=== PATIENT | male | born 1945 | race Caucasian/White ===

== ENCOUNTER 2016-11-15 12:27 | Observation (INO) ==
[2016-11-15] MEDS ORDERED: Ipratropium/Albuterol Neb 3 ML IH ONE (12:46)
[2016-11-15] MEDS ORDERED: methylPREDNISolone 125 MG/2 ML VIAL IVP ONE (12:46)
[2016-11-15] MEDS ORDERED: *HR* LORazepam 2 MG/ML VIAL IVP ONE (12:52)
[2016-11-15 13:05] LABS: Basophils % 0.7 %; Eosinophils # 0.1 K/mcL (0.0-0.6); Eosinophils % 2.2 %; Hematocrit 40.5 % (37.5-50.1); Hemoglobin 13.5 g/dL (12.9-16.9); Immature Granulocytes % 0.2 % (0-4); Lymphocytes # 0.5 K/mcL (0.6-4.6); Lymphocytes % 8.4 %; Mean Corpuscular HGB Conc 33.3 g/dL (31.6-35.5); Mean Corpuscular Hemoglobin 26.7 pg (28.0-33.3); Mean Corpuscular Volume 80.2 fL (83.0-100.0); Mean Platelet Volume 9.1 fL (9.4-12.4); Monocytes # 0.7 K/mcL (0.0-1.3); Monocytes % 11.6 %; Neutrophils # 4.5 K/mcL (1.6-8.9); Platelet Count 251 K/mcL (140-400); Red Blood Count 5.05 M/mcL (4.19-5.50); Segmented Neutrophils % 76.9 %
[2016-11-15 13:17] LABS: BUN/Creatinine Ratio 9 (6-26); Blood Urea Nitrogen 9 mg/dL (8-26); Calcium 10.3 mg/dL (8.6-10.8); Carbon Dioxide 23 mEq/L (19-29); Chloride 100 mEq/L (98-109); Glucose 121 mg/dL (70-99); Osmolality,Calculated 278 (280-300); Potassium 4.2 mEq/L (3.5-4.5); Sodium 134 mEq/L (136-145); eGFR For African Americans > 60 (> 60); eGFR For Non-African Americans > 60 (> 60)
--- NOTE | 2016-11-15 13:20 | Emergency Department Note ---
Disposition Clinical Impression: Pericardial effusion, Acute exacerbation of chronic obstructive airways disease , Prostate cancer Disposition: Admitted As Inpatient Condition: Fair Time of Disposition: 16:51 SOB HPI - General Chief Complaint: ED Shortness of Breath/Dyspnea Stated Complaint: SOB Time Seen by Provider: 11/15/16 12:45 Source: patient Limitations: no limitations Nursing Notes Reviewed: Yes Vital Signs Reviewed: Yes - History of Present Illness 71-year-old male with shortness of breath and shakiness for the last few days. She thought this was due to starting on hydroxyzine so he discontinued this yesterday. Patient has a history of COPD, has oxygen as needed at baseline. Patient states that he is feeling more short of breath, he also has not new history of prostate cancer and gets radiation treatments daily for the last [address] Garrido at [facility]. Patient denies chest pain or pressure , denies abdominal pain. Denies fever chills or productive cough, nausea, vomiting, diarrhea, constipation, dysuria, hematuria, or wt loss. Shakiness he is not sure of but he states that his having generalized full body shaking, does not lose consciousness, attributes this to anxiety. Pt Subjective Complaint: shortness of breath Onset (ago): day(s) Context: recent illness Severity: mild Known history of: COPD Associated symptoms: Reports: cough. Denies: chest pain, pain with inspiration , nausea/vomiting, abdominal pain Cough present: Yes Cough Description: Voluntary Cough Frequency: Continuous Sputum production: No Sputum Amount: None - Related Data Home oxygen amount: other (PRN) Home Medications Medication Instructions Recorded Confirmed Albuterol Sulfate 2.5 mg IH TID PRN 08/17/15 11/15/16 Albuterol Sulfate [Ventolin Hfa] 2 puff IH Q4H PRN 08/17/15 11/15/16 Fluticasone/Salmeterol [Advair 1 puff IH BID 08/17/15 11/15/16 500-50 Diskus] Losartan Potassium [Cozaar] 50 mg PO DAILY 08/17/15 11/15/16 Roflumilast [Daliresp] 500 mcg PO DAILY 08/17/15 11/15/16 Amlodipine Besylate 10 mg PO DAILY 01/31/16 11/15/16 Oxygen 2 l NS HS 09/04/16 11/15/16 Ipratropium/Albuterol Sulfate 1 puff IH BID 11/15/16 11/15/16 [Combivent Respimat Inhal [place]] Melatonin 10 mg PO HS 11/15/16 11/15/16 Previous Rx's Medication Instructions Recorded Sulfamethoxazole/Trimeth DS 1 each PO BID #10 tablet 11/12/16 [Bactrim DS] Allergies Allergy/AdvReac Type Severity Reaction Status Date / Time ciprofloxacin [From Cipro] Allergy Swelling Verified 09/04/16 10:52 of Lip/Tongue/Throat All systems ED: reviewed and negative except as stated. Constitutional: Denies: fever, chills Cardiovascular: Denies: chest pain, palpitations Respiratory: Reports: as per HPI, dyspnea, wheezes. Denies: cough, sputum production Gastrointestinal: Denies: abdominal pain, nausea Musculoskeletal: Denies: back pain, neck pain Integumentary: Denies: rash Neurological: Reports: other (Shakiness). Denies: headache, weakness Psychiatric: Denies: anxiety, depression Endocrine: Denies: fatigue Past Medical History - Past Medical History Attestation: Yes The following information was validated with the patient. Source: patient Medical history: Reports: cancer, COPD, hypertension, other Surgical history: Reports: other Psychiatric history: Reports: no psych history - Social History Smoking Status: Former smoker Smokeless Tobacco Status: No Alcohol use: Reports: none Drug use: Reports: none Physical Exam Constitutional: Elderly male somewhat shaky no acute distress satting 95% on room air HEENT: NCAT, sclera anicteric Neck: normal inspection, neck is supple, trachea midline, NO JVD Resp: Bilateral expiratory wheezes and prolonged expiratory phase with pursed lip breathing CV: RRR, diminished heart sounds GI: normal inspection, Soft, NTND, BS present Back: normal inspection, no tenderness to palpation Neuro: A&O3, no gross motor or sensory deficits bilaterally, generalized tremors MSK: normal inspection, bilateral UE and LE with normal ROM Skin: No rashes, skin warm, dry, intact - General Limitations: no limitations General appearance: alert, in no apparent distress Course Course Narrative: 71-year-old male with shortness of breath history of COPD, given recent prostate cancer with a chest pain workup including chest x-ray tried DuoNeb treatments given that he does sound somewhat wheezy, and reassess this lab work CBC BMP troponin duoneb, soluMedrol 125 - Reevaluation(s) Reevaluation #1: A CTA of his chest was obtained to evaluate for pulmonary embolism, recently found a trace pericardial effusion, I sent a bedside ultrasound on and there does appear to be good cardiac activity, with no evidence of Not physiology, patient is no evidence of JVD on exam, or hypotension during his course in the emergency department, at this time no intervention is necessary however I did consult the on-call recycler Dr. Clark and made her aware that there will be a cardiology consult for pericardial effusion admitted the patient to Dr. Bowen in stable condition Time: 16:50 Vital Signs Temperature 97.8 F 11/15/16 12:29 Pulse Rate 92 11/15/16 12:29 Respiratory Rate 25 11/15/16 12:29 Blood Pressure 157/97 11/15/16 12:29 O2 Sat by Pulse Oximetry 95 11/15/16 12:29 Temperature 97.8 F 11/15/16 12:29 Pulse Rate 93 11/15/16 15:52 Respiratory Rate 20 11/15/16 16:31 Blood Pressure 128/70 11/15/16 16:31 O2 Sat by Pulse Oximetry 95 11/15/16 15:52 Oxygen Delivery Oxygen Delivery Nasal Cannula Shortness of Breath/Dyspnea - [facility] [place] Narrative Medical decision making narrative: 71-year-old male with shortness of breath admitted for pericardial effusion, possible radiation pneumonitis, COPD exacerbation. - Differential Diagnosis Likely: congestive heart failure, pneumonia, asthma with exacerbation, pulmonary embolism - Medical Records Medical records reviewed: Yes I reviewed the patient's medical records. - Lab Data Lab results reviewed: Yes I reviewed the patient's lab results. Result diagrams: 11/15/16 12:57 11/15/16 12:57 Lab Results 11/15/16 11/15/16 11/15/16 Range/Units 12:57 12:57 12:57 WBC 5.8 (4.3-11.1) K/mcL RBC 5.05 (4.19-5.50) M/mcL Hgb 13.5 (12.9-16.9) g/dL Hct 40.5 (37.5-50.1) % MCV 80.2 L (83.0-100.0) fL MCH 26.7 L (28.0-33.3) pg MCHC 33.3 (31.6-35.5) g/dL RDW 13.0 (11.5-14.5) % Plt Count 251 (140-400) K/mcL MPV 9.1 L (9.4-12.4) fL Immature Gran % 0.2 (0-4) % Seg Neutrophils % 76.9 % Lymphocytes % 8.4 % Monocytes % 11.6 % Eosinophils % 2.2 % Basophils % 0.7 % Neutrophils # 4.5 (1.6-8.9) K/mcL Lymphocytes # 0.5 L (0.6-4.6) K/mcL Monocytes # 0.7 (0.0-1.3) K/mcL Eosinophils # 0.1 (0.0-0.6) K/mcL Basophils # 0.0 (0.0-0.2) K/mcL Immature Plt Fraction 3.0 (1.1-6.1) % Sodium 134 L (136-145) mEq/L Potassium 4.2 (3.5-4.5) mEq/L Chloride 100 (98-109) mEq/L Carbon Dioxide 23 (19-29) mEq/L BUN 9 (8-26) mg/dL Creatinine 1.02 (0.72-1.25) mg/dL Est GFR ( Amer) > 60 (> 60) Est GFR (Non-Af Amer) > 60 (> 60) BUN/Creatinine Ratio 9 (6-26) Glucose 121 H (70-99) mg/dL Calculated Osmolality 278 L (280-300) Lactic Acid 1.4 (0.5-2.2) mmol/L Calcium 10.3 (8.6-10.8) mg/dL Troponin I (0-0.03) ng/mL B-Natriuretic Peptide (0-100) pg/mL 11/15/16 11/15/16 Range/Units 12:57 12:57 WBC (4.3-11.1) K/mcL RBC (4.19-5.50) M/mcL Hgb (12.9-16.9) g/dL Hct (37.5-50.1) % MCV (83.0-100.0) fL MCH (28.0-33.3) pg MCHC (31.6-35.5) g/dL RDW (11.5-14.5) % Plt Count (140-400) K/mcL MPV (9.4-12.4) fL Immature Gran % (0-4) % Seg Neutrophils % % Lymphocytes % % Monocytes % % Eosinophils % % Basophils % % Neutrophils # (1.6-8.9) K/mcL Lymphocytes # (0.6-4.6) K/mcL Monocytes # (0.0-1.3) K/mcL Eosinophils # (0.0-0.6) K/mcL Basophils # (0.0-0.2) K/mcL Immature Plt Fraction (1.1-6.1) % Sodium (136-145) mEq/L Potassium (3.5-4.5) mEq/L Chloride (98-109) mEq/L Carbon Dioxide (19-29) mEq/L BUN (8-26) mg/dL Creatinine (0.72-1.25) mg/dL Est GFR ( Amer) (> 60) Est GFR (Non-Af Amer) (> 60) BUN/Creatinine Ratio (6-26) Glucose (70-99) mg/dL Calculated Osmolality (280-300) Lactic Acid (0.5-2.2) mmol/L Calcium (8.6-10.8) mg/dL Troponin I 0.00 (0-0.03) ng/mL B-Natriuretic Peptide 12 (0-100) pg/mL - Radiology Data Radiology results reviewed: Yes I reviewed the patient's radiology results. Chest X-Ray 11/15/16 12:46 IMPRESSION: No acute cardiopulmonary process. D/ / Silas Claudio MD / Silas Claudio MD Interpreting Provider: Silas Claudio MD Chest CTA 11/15/16 13:59 IMPRESSION: 1. New trace pericardial effusion. D/ / Nestor Browning MD / Nestor Browning MD Interpreting Provider: Nestor Browning MD - EKG Data EKG attestation: Yes I reviewed and interpreted this EKG. EKG shows normal: Reports: sinus rhythm (95 bpm [place] 166 QRS [address] segment elevations or depressions.) Rate: Reports: normal Rhythm: Reports: NSR Attestation Statement - Attestation Attestation: I personally interviewed and examined this patient and my medical decision- making was reviewed with the ED Resident Physician, Dr. Kapadia I agree with the documented findings, disposition and treatment plan as described except to the extent set forth below. Patient is a 71-year-old white male with a history of prostate cancer undergoing radiation therapy every day for the last 3 weeks. Patient also has a history of COPD and presents today complaining of gradually worsening shortness of breath over the past 2 days. Patient also complaining of jitteriness and shakiness and was concerned that it could be related to his hydroxyzine that he has been taking which was prescribed for anxiety. Patient denies any fevers or chills, no production of cough or change in the character of his cough. Patient with no posttussive emesis. Patient denies any chest pain pressure or heaviness associated with this shortness of breath. Patient denies any nausea vomiting, no bowel changes, no back or flank pain. Agree with patient's physical exam findings as documented. Patient received breathing treatments on arrival to the ED and is on supplemental oxygen at this time, he uses 2 L nasal cannula at home as needed. Patient with noticeable increased work of breathing although daughter states that "this is how he always breathes". Patient states he is feeling better following aerosols. Portal chest x-ray shows no acute process, lab evaluation is unremarkable overall. At this time we are concerned in regards to his recent cancer diagnosis whether or not this could be possible PE versus radiation pneumonitis. Will continue evaluation with CT of the chest to rule out these possibilities. Patient with improved respiratory status at this time , resting comfortably at bedside with stable vital signs. Patient CT negative for PE, but does show small pericardial effusion. Discussed results with patient and will admit the patient for acute exacerbation COPD as well as pericardial effusion. Patient remains hemodynamically stable at this time with improved respiratory status.
[2016-11-15] MEDS: 0.9 % Sodium Chloride 1,000 ML IVC SCH (16:44)
[2016-11-15] MEDS ORDERED: Acetaminophen 325 MG TABLET PO PRN (17:19)
[2016-11-15] MEDS ORDERED: Ondansetron 4 MG/2 ML VIAL IVP PRN (17:19)
[2016-11-15] MEDS ORDERED: *HR* HYDROcodone/Acet 5/325 mg TABLET PO PRN (17:19)
[2016-11-15] MEDS ORDERED: *HR* Morphine 2 MG/ML SYRINGE IVP PRN (17:19)
[2016-11-15] MEDS ORDERED: Naloxone 0.4 MG/ML INJ IVP PRN (17:19)
[2016-11-15] MEDS ORDERED: Menthol 9.1 MG LOZENGE PO PRN (17:49)
--- NOTE | 2016-11-15 17:51 | Internal Med History&Physical ---
<Enoc Betancur - Last Filed: 11/15/16 18:52> Date of Encounter: 11/15/16 Time of Encounter: 17:00 Assessment and Plan (1) Pericardial effusion Current visit: Yes Status: Acute Patient presents with acute SOB over the past three weeks which has become progressively worse over the past three days. CT of the chest dated 11/15/16 shows new trace pericardial effusion with no evidence of cardiac tamponade. No pedal edema. No JVD on examination. EV echocardiogram ordered and cardiology consult placed. Continuous cardiac telemetry and supplemental O2 ordered with continuous SPO2 monitoring. CK/MB ordered. Falls precautions/[id number]/bed rest with bathroom privileges with assist. (2) Acute exacerbation of chronic obstructive airways disease Current visit: Yes Status: Acute Patient presents with acute exacerbation of chronic obstructive airways disease which he reports has taken place over the past 3 weeks and progressively got worse over the past 3 days. Supplemental O2 ordered with titration if SPO2 less than 92%. Continuous SPO2 monitoring. DuoNebs every 4 ordered. IV steroids. Continue patient's Symbicort. IV antibiotics. Falls precautions/up- with-assist/and bed rest with bathroom privileges with assist due to SOB. (3) UTI (urinary tract infection) Current visit: Yes Status: Acute Patient diagnosed with UTI [address] Garrido and placed on by mouth antibiotics. Patient has not completed full round of antibiotics. IV azithromycin 500 mg daily ordered. Urine culture ordered. Qualifiers: Urinary tract infection type: site unspecified Hematuria presence: without hematuria Qualified Code(s): N39.0 - Urinary tract infection, site not specified (4) Insomnia Current visit: Yes Status: Acute Patient presents with new onset insomnia for the past week stating he only has slept 2 hours nightly for the past 7 days. Remeron 7.5 mg at bedtime ordered. Qualifiers: Insomnia type: due to medical condition Qualified Code(s): G47.01 - Insomnia due to medical condition (5) Prostate cancer Current visit: Yes Status: Acute Patient presents with recent history of prostate cancer for which he received radiation treatments daily for the past [address] Garrido at [facility]. Patient to follow up with Dr. Garrido following discharge. (6) Hypertension Current visit: Yes Status: Chronic Patient presents with history of chronic hypertension. Will monitor patient and vital signs. Continue patient's Losartan and amlodipine. Qualifiers: Hypertension type: essential hypertension Qualified Code(s): I10 - Essential (primary) hypertension (7) DVT prophylaxis Current visit: Yes Status: Acute Patient placed on DVT prophylaxis due to admission protocol and bedrest status. Heparin 5,000 units SQ Q12 ordered. Monitor patient for unusual bleeding. Internal Medicine - H&P: HPI Chief complaint: SOB/Shakiness Admitted From: Emergency Dept Plans for Post Hospital Care: Home History of present illness: Mr. Jacques is a 71 year old male who presents from the ED with chief complaint of shortness of breath and shakiness for the past few days. Patient reports shortness of breath has been ongoing accompanied by dizziness for the past 3 weeks became progressively worse within the past 2-3 days. SOB has been accompanied by a feeling of total body shakiness. Patient felt his dizziness, shakiness, and SOB was due to new prescription of hydroxyzine 71 discontinued as of yesterday. Patient also reports a new history of prostate cancer and received radiation treatments daily for the past [address] Garrido at [facility]. Patient reports he was also diagnosed with the UTI by Dr. Garrido which ago and placed on by mouth antibiotics. Mr. Jacques also reports he has not slept more than 2 hours in the past week due to anxiety and SOB. Patient denies chest pain or pressure, abdominal pain, recent illness, syncope, presyncope, fever, chills, productive cough, nausea, vomiting, diarrhea, constipation, unusual bleeding or weight loss, or generalized weakness. Patient has a history of prostate cancer, COPD, hypertension but denies any cardiac history or issues. CT of the chest dated 11/15/16 shows new trace pericardial effusion with no evidence of cardiac tamponade. Patient is at moderate risk due to shortness of breath, COPD, and pericardial effusion and will be placed as observation status. Mr. Jacques has orders for echocardiogram, CK/MB, iron panel due to microcytic/hypochromic anemia, continuous cardiac telemetry, supplemental O2 with saturation of SPO2 less than 92%, continuous SPO2 monitoring, and IV azithromycin 500 mg daily. Urine cultures ordered. Patient to be monitored closely. Time spent with patient greater than 40 minutes. Past Med Surg Social Fam HX - Past Medical History Source: patient Medical history: cancer (Prostate), COPD, hypertension, other Psychiatric history: no psych history - Past Surgical History Surgical History: orthopedic, other (Back & neck surgery), other (Removal of skin cancer on left chest) - Social History Smoking Status: Former smoker Smokeless Tobacco Status: No Alcohol use: none Drug use: none Current living situation: Home, With Family Activity Level: Independent ambulation Recent Out of Country Travel Within the Last 8 Weeks: No Exposure or Possible Exposure to Illness During Travel: No - Family History Mother Race: Family Member Ethnicity: Non- Living Status: Age at : 78 Cause of : COPD complications Hx Family Respiratory Disorders: Yes (COPD) Father Adopted: No Race: Family Member Ethnicity: Non- Living Status: Age at : 72 Cause of : Brain cancer Hx Family Cardiac Disorders: Yes (CAD) Hx Family Cancer: Yes (Leukemia, Brain) Brother Race: Family Member Ethnicity: Non- Living Status: Age at : 59 Cause of : COPD complications Hx Family Respiratory Disorders: Yes (COPD) Sister Race: Family Member Ethnicity: Non- Living Status: Age at : 74 Cause of : Stroke Hx Family Cardiac Disorders: Yes (Stroke) Internal Medicine - H&P: Meds RX: Albuterol Sulfate 2.5 mg IH TID PRN 08/17/15 [History] RX: Albuterol Sulfate [Ventolin Hfa] 2 puff IH Q4H PRN 08/17/15 [History] RX: Fluticasone/Salmeterol [Advair 500-50 Diskus] 1 puff IH BID 08/17/15 [ History] RX: Losartan Potassium [Cozaar] 50 mg PO DAILY 08/17/15 [History] RX: Roflumilast [Daliresp] 500 mcg PO DAILY 08/17/15 [History] RX: Amlodipine Besylate 10 mg PO DAILY 01/31/16 [History] RX: Oxygen 2 l NS HS 09/04/16 [History] Sulfamethoxazole/Trimeth DS [Bactrim DS] 1 each PO BID #10 tablet 11/12/16 [Rx] Ipratropium/Albuterol Sulfate [Combivent Respimat Inhal [place]] 1 puff IH BID [History] RX: Melatonin 10 mg PO HS 11/15/16 [History] Allergies ciprofloxacin [From Cipro] Allergy (Verified 09/04/16 10:52) Swelling of Lip/Tongue/Throat All Systems PM: A 10-system review of systems was performed and is negative for pertinent findings except as documented above in the HPI. - Constitutional Constitutional: no chills, no fever(s), no night sweats - EENT Eyes: no change in vision, no discharge, no pain, no photophobia Ears: no ear discharge, no ear pain, no tinnitus Nose, mouth and throat: no dysphagia, no nasal discharge, no neck pain, no sore throat - Breasts Breasts: as per HPI - Cardiovascular Cardiovascular ROS IM: as per HPI, dyspnea, lightheadedness, no chest pain, no diaphoresis, no palpitations, no syncope - Respiratory Respiratory: as per HPI, cough, dyspnea, dyspnea on exertion, wheezing - Gastrointestinal Gastrointestinal: no abdominal pain, no diarrhea, no hematemesis, no hematochezia, no melena, no nausea, no vomiting - Genitourinary Genitourinary ROS male: as per HPI, difficulty urinating - Musculoskeletal Musculoskeletal ROS IM: as per HPI, other (Shakiness) - Neurological Neurological ROS: no confusion, no convulsions, no focal weakness, no numbness, no tingling, no tremor(s) - Psychiatric Psychiatric: as per HPI - Endocrine Endocrine IM: as per HPI - Hematologic/Lymphatic Hematologic/Lymphatic: no easy bruising - Allergic/Immunologic Allergic/Immunologic: as per HPI - Constitutional Vitals: Temp Pulse Resp BP Pulse Ox 97.8 F 93 20 128/70 95 11/15/16 12:29 11/15/16 15:52 11/15/16 16:31 11/15/16 16:31 11/15/16 15:52 General appearance: Present: cooperative, mild distress (Respiratory with accessory muscle use), A&O X 3, pleasant, answers questions appropriately - Head Head exam: Present: atraumatic, normocephalic - Eye Eye exam: Present: PERRL, conjuntiva pink, sclera anicteric Pupils: Present: PERRL - ENT ENT exam: Present: normal exam, normal external ear exam - Neck Neck exam general surgery: Present: supple, trachea midline. Absent: lymphadenopathy - Respiratory Respiratory exam: Present: accessory muscle use, respiratory distress, wheezes. Absent: rales, rhonchi - Cardiovascular Cardiovascular exam: Present: RRR, +S1, +S2. Absent: diastolic murmur, gallop, rubs, systolic murmur - GI/Abdominal GI/Abdominal exam: Present: normal bowel sounds, soft, no peritoneal signs. Absent: distended, tenderness - Rectal Rectal exam: Present: deferred - Additional comments: exam deferred. - Extremities Exam Extremities exam: Present: warm, radial pulses palpable and symetrical. Absent : calf tenderness, cyanotic, pedal edema - Back Exam Back exam: Present: normal inspection - Neurological Exam Neurological exam: Present: CN II-XII intact, oriented X3, no focal deficits. Absent: pronater drift, facial droop, speech deficit - Psychiatric Psychiatric exam: Present: normal affect, normal mood - Skin Skin exam: Present: dry, intact Internal Med - H&P Results - Labs CBC & Chem 7: 11/15/16 12:57 11/15/16 12:57 - EKG Data EKG shows normal: sinus rhythm - EKG Data Prior EKG available for review: yes When compared to previous EKG: there is no significant change EKG comments: 11/15/16 18:08 EKG dated 12/26/05 shows sinus rhythm with poor R-wave progression (probable normal variant), nonspecific ST-T wave changes. EKG dated 11/15/16 shows sinus rhythm with indeterminate axis, atypical ECG. - Diagnostic Studies Chest x-ray Additional comments: Impressions Chest X-Ray 11/15/16 12:46 IMPRESSION: No acute cardiopulmonary process. D/ / Silas Claudio MD / Silas Claudio MD Interpreting Provider: Silas Claudio MD CT scan - chest Additional comments: Impressions Chest CTA 11/15/16 13:59 IMPRESSION: 1. New trace pericardial effusion. D/ / Nestor Browning MD / Nestor Browning MD Interpreting Provider: Nestor Browning MD <Jesenia Mary - Last Filed: 11/15/16 18:53> Date of Encounter: 11/15/16 Time of Encounter: 17:30 Internal Medicine - H&P: HPI History of present illness: Mr. Jacques is a 71 year old male All Systems PM: A 10-system review of systems was performed and is negative for pertinent findings except as documented above in the HPI. - Constitutional Vitals: Temp Pulse Resp BP Pulse Ox 97.8 F 76 16 120/73 94 11/15/16 17:51 11/15/16 17:51 11/15/16 17:51 11/15/16 17:51 11/15/16 17:51 Internal Med - H&P Results - Labs CBC & Chem 7: 11/15/16 12:57 11/15/16 12:57 - Attending Attestation I examined this patient and my medical decision-making was reviewed with the nurse practitioner. I agree with the documented history of present illness, review of systems, past medical, surgical social and family histories and examination findings, disposition and treatment plan as described above except to any changes set forth below. 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 Patient also has been Having cough with productive sputum. He denies any chest pain, palpitations. Denies any pedal edema. He has been receiving radiation to his prostate daily. No prior cardiac issues. On examination, patient has normal S1 and S2. Has decreased breath sounds bilaterally with expiratory wheezing. No pedal edema. No jugular venous distention. CT angiogram of the chest shows no PE but there is trace pericardial effusion. Acute exacerbation of COPD: Patient has expiratory wheezing and cough with sputum production. We will treat with IV steroids, bronchodilators and azithromycin. Pericardial effusion: Trace pericardial effusion per CTA. Bedside US in ED did not show any evidence of tamponade. We will get 2-D echocardiogram. Cardiology consult. Essential hypertension: Monitor blood pressure. Resume home medications. Prostate cancer: He should not we will continue with radiation therapy after discharge.
[2016-11-15] MEDS ORDERED: Levofloxacin 500 MG/100 ML 500 MG/100 ML BAG IVPB SCH (18:00)
[2016-11-15] MEDS: Azithromycin 500 MG in D5% in Water 250 ML IVPB SCH (18:16)
[2016-11-15] MEDS: *HR* Heparin 5,000 UNIT/ML VIAL SQ SCH (18:16)
[2016-11-15 18:31] LABS: % Iron Saturation 17 % (20-55); Iron 57 mcg/dL (65-175); Transferrin 235 mg/dL (174-364)
--- NOTE | 2016-11-15 18:31 | Event Note ---
Date of Encounter: 11/15/16 Time of Encounter: 17:30 I examined this patient and my medical decision-making was reviewed with the nurse practitioner. I agree with the documented history of present illness, review of systems, past medical, surgical social and family histories and examination findings, disposition and treatment plan as described above except to any changes set forth below. 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 Patient also has been Having cough with productive sputum. He denies any chest pain, palpitations. Denies any pedal edema. He has been receiving radiation to his prostate daily. No prior cardiac issues. On examination, patient has normal S1 and S2. Has decreased breath sounds bilaterally with expiratory wheezing. No pedal edema. No jugular venous distention. CT angiogram of the chest shows no PE but there is trace pericardial effusion. Acute exacerbation of COPD: Patient has expiratory wheezing and cough with sputum production. We will treat with IV steroids, bronchodilators and azithromycin. Pericardial effusion: Trace pericardial effusion per CTA. We will get 2-D echocardiogram. Cardiology consult. Essential hypertension: Monitor blood pressure. Resume home medications. Prostate cancer: He should not we will continue with radiation therapy after discharge.
[2016-11-15] MEDS: Ipratropium/Albuterol Neb 3 ML IH SCH ×2 (19:54→23:43)
[2016-11-15] MEDS: Mirtazapine 15 MG TABLET PO SCH (20:48)
[2016-11-15] MEDS ORDERED: Budesonide/Formoterol 160/4.5 MDI IH SCH (21:00)
[2016-11-15 21:28] LABS: Bilirubin,Urine Negative (Negative); Blood,Urine Negative (Negative); Clarity,Urine Clear (Clear); Color,Urine Yellow (Yellow); Glucose,Urine (UA) 250 mg/dL (Normal); Ketones,Urine Negative (Negative); Leukocyte Esterase,Urine Negative (Negative); Nitrite,Urine Negative (Negative); Protein,Urine Negative (Neg-Trace); Specific Gravity,Urine > 1.030 (1.010-1.025); Urobilinogen,Urine Normal (Normal)
[2016-11-16] MEDS: methylPREDNISolone 125 MG/2 ML VIAL IVP SCH ×4 (00:49→20:08)
[2016-11-16] MEDS: 0.9 % Sodium Chloride 1,000 ML IVC SCH ×2 (02:29→14:47)
[2016-11-16 03:43] LABS: Hematocrit 36.8 % (37.5-50.1); Hemoglobin 12.1 g/dL (12.9-16.9); Mean Corpuscular HGB Conc 32.9 g/dL (31.6-35.5); Mean Corpuscular Hemoglobin 26.4 pg (28.0-33.3); Mean Corpuscular Volume 80.2 fL (83.0-100.0); Mean Platelet Volume 9.3 fL (9.4-12.4); Platelet Count 225 K/mcL (140-400); Red Blood Count 4.59 M/mcL (4.19-5.50); Red Cell Distribution Width 12.9 % (11.5-14.5)
[2016-11-16 03:57] LABS: BUN/Creatinine Ratio 11 (6-26); Blood Urea Nitrogen 11 mg/dL (8-26); Calcium 9.5 mg/dL (8.6-10.8); Carbon Dioxide 23 mEq/L (19-29); Chloride 104 mEq/L (98-109); Chol/HDL Ratio 2.6 (0-4.9); Cholesterol 116 mg/dL (< 200); Glucose 157 mg/dL (70-99); HDL Cholesterol 45 mg/dL (40-59); LDL Cholesterol,Calculated 65 mg/dL (0-99); Osmolality,Calculated 279 (280-300); Potassium 4.5 mEq/L (3.5-4.5); Sodium 133 mEq/L (136-145); Triglycerides 31 mg/dL (< 150); eGFR For African Americans > 60 (> 60); eGFR For Non-African Americans > 60 (> 60)
[2016-11-16] MEDS: Ipratropium/Albuterol Neb 3 ML IH SCH ×6 (03:57→23:53)
[2016-11-16 04:10] LABS: Large Platelets Present (Not Present); Lymphocytes # 0.4 K/mcL (0.6-4.6); Neutrophils # 3.4 K/mcL (1.6-8.9); Platelet Estimate Normal (Normal); Reactive Lymphocytes Present (Not Present)
[2016-11-16] MEDS: *HR* Heparin 5,000 UNIT/ML VIAL SQ SCH ×2 (05:56→17:20)
[2016-11-16] MEDS: Budesonide/Formoterol 160/4.5 MDI IH SCH ×2 (07:29→20:29)
[2016-11-16] MEDS: amLODIPine 5 MG TABLET PO SCH (08:13)
[2016-11-16] MEDS: (Roflumilast [Daliresp] 500 MCG) PO SCH (09:40)
--- NOTE | 2016-11-16 09:45 | Internal Med Progress Note ---
Date of Encounter: 11/16/16 Time of Encounter: 09:00 - Assessment and plan (1) Acute exacerbation of chronic obstructive airways disease Current Visit: Yes Status: Acute Assessment and plan: Pt has increased wheezing with SOB. Hx of COPD. Respond to treatment. - Cont abx, steroid and bronchodilator - Cont O2 supportive treatment, pt has home O2 already and use only during night. (2) Prostate cancer Current Visit: Yes Status: Acute Assessment and plan: Patient is following radiation oncologist as outpatient (3) Hypertension Current Visit: Yes Status: Chronic Assessment and plan: BP is stable continue home medications Qualifiers: Hypertension type: essential hypertension Qualified Code(s): I10 - Essential (primary) hypertension (4) Pericardial effusion Current Visit: Yes Status: Acute Assessment and plan: CTA shows small amount new pericardial effusion. Pt denies chest pain. EKG reviewed no signs of pericarditis but shows some QRS variation along breath. - Need closely monitor vitals for possible tamponade - Echo placed. - Cardio consult to guide treatment. (5) DVT prophylaxis Current Visit: Yes Status: Acute Assessment and plan: Heparin subcutaneously - Time Spent With Patient 25 - 35 minutes - Subjective Interval history: Patient is a 71-year-old male admitted for shortness of breath. His past medical history is significant for COPD, hypertension, prostate cancer. Patient was seen and examined. His shortness of breath has significantly improved after treatment. Still mild wheezing. Denies chest pain. No fever. Vital signs generally stable except for mild tachycardia. Will continue antibiotic, steroid, and bronchodilator. Cardio consult for pericardial effusion. - Constitutional Vitals: Temp Pulse Resp BP Pulse Ox 97.7 F 104 20 124/64 96 11/16/16 07:44 11/16/16 07:44 11/16/16 07:44 11/16/16 04:42 11/16/16 07:44 General appearance: Present: cooperative, mild distress (Respiratory with accessory muscle use), A&O X 3, pleasant, answers questions appropriately - Head Head exam: Present: atraumatic, normocephalic - Eye Eye exam: Present: PERRL, conjuntiva pink, sclera anicteric Pupils: Present: PERRL - Neck Neck exam general surgery: Present: supple, trachea midline. Absent: lymphadenopathy - Respiratory Respiratory exam: Present: CTAB, wheezes (Diffused bilateral expiratory wheezes) . Absent: accessory muscle use, rales, rhonchi - Cardiovascular Cardiovascular exam: Present: RRR, +S1, +S2. Absent: diastolic murmur, gallop, rubs, systolic murmur - GI/Abdominal GI/Abdominal exam: Present: normal bowel sounds, soft, no peritoneal signs. Absent: distended, tenderness - Extremities Exam Extremities exam: Present: warm, radial pulses palpable and symetrical. Absent : calf tenderness, cyanotic, pedal edema - Neurological Exam Neurological exam: Present: CN II-XII intact, oriented X3, no focal deficits. Absent: pronater drift, facial droop, speech deficit - Skin Skin exam: Present: dry, intact Internal Medicine: Result - Labs CBC & Chem 7: 11/16/16 03:27 11/16/16 03:27 Labs: Short CBC 11/16/16 Range/Units 03:27 WBC 3.8 L (4.3-11.1) K/mcL Hgb 12.1 L (12.9-16.9) g/dL Hct 36.8 L (37.5-50.1) % Plt Count 225 (140-400) K/mcL Neutrophils # 3.4 (1.6-8.9) K/mcL BMP 11/16/16 03:27 Sodium 133 L Potassium 4.5 Chloride 104 Carbon Dioxide 23 BUN 11 Creatinine 0.97 Glucose 157 H Calcium 9.5 Cardiac Enzymes 11/16/16 Range/Units 03:27 Troponin I 0.01 (0-0.03) ng/mL Urine 11/15/16 Range/Units 21:23 Urine Color Yellow (Yellow) Urine Clarity Clear (Clear) Urine pH 6.0 (5.0-8.0) pH Units Ur Specific [place] > 1.030 H (1.010-1.025) Urine Protein Negative (Neg-Trace) mg/dL Urine Glucose (UA) 250 H (Normal) mg/dL Consult Discharge Plan - Plan Referrals: Marla Kellogg CNP [Primary Care Provider] - 11/26/16 1:15 pm (Please follow up as scheduled )
--- NOTE | 2016-11-16 11:14 | Cardiology Consult Note ---
Date of Encounter: 11/16/16 Time of Encounter: 10:45 Assessment and Plan (1) Pericardial effusion Current Visit: Yes Status: Acute Incidental finding of new trace pericardial effusion noted on CTA chest in the setting of COPD exacerbation. Troponin negative, no ischemic ECG changes noted. Denies recent viral symptoms. Recently started radiation therapy for prostate CA 3 weeks ago. States symptoms (dyspnea/tremors) have nearly resolved. Recommend echocardiogram to evaluate size of effusion. Discussion w patient/family: The assessment and plan as outlined above was discussed with the patient and/or family members who expressed understanding and agreement. All questions were answered. Thank you for involving us in the care of your patient. Please call with any questions. The patient will be discussed and reviewed with Dr. Au; changes to be made accordingly. History of Present Illness Consult date: 11/16/16 Requesting physician: Jesenia Mary Consult reason: Trace pericardial effusion Chief complaint: Dyspnea, "shakiness" History of present illness: Mr. Jacques is a 71 year old male with PMH significant for COPD on home oxygen therapy, HTN, former tobacco use, and prostate cancer who presented to the ED with 2-3 day history of worsening difficulty breathing and "shakiness." Associated symptoms include insomnia for the past 2 weeks; of note, started radiation therapy for prostate CA 3 weeks ago. He notes he was recently started on Hydroxyzine several days ago which seemed to have worsened tremors and dyspnea. Bedside TTE completed in ED felt to show trace pericardial effusion, CTA demonstrated trace pericardial effusion--Cardiology consulted. Prior CV testing : TTE 01/31/16: LVEF 55% (limited study) Non-exercise nuclear stress 02/01/16: perfusion imaging was negative for ischemia/infarct, gated EF=67% Past Med Surg Social Fam HX - Past Medical History Attestation: Yes The following information was validated with the patient. Source: patient Medical history: cancer (Prostate), COPD, hypertension Psychiatric history: no psych history - Past Surgical History Surgical History: orthopedic, other (Back & neck surgery), other (Removal of skin cancer on left chest) - Social History Smoking Status: Former smoker Smokeless Tobacco Status: No Alcohol use: none Drug use: none - Family History Brother Race: Family Member Ethnicity: Non- Living Status: Age at : 59 Cause of : COPD complications Hx Family Respiratory Disorders: Yes (COPD) Sister Race: Family Member Ethnicity: Non- Living Status: Age at : 74 Cause of : Stroke Hx Family Cardiac Disorders: Yes (Stroke) Mother Race: Family Member Ethnicity: Non- Living Status: Age at : 78 Cause of : COPD complications Hx Family Respiratory Disorders: Yes (COPD) Father Adopted: No Race: Family Member Ethnicity: Non- Living Status: Age at : 72 Cause of : Brain cancer Hx Family Cardiac Disorders: Yes (CAD) Hx Family Respiratory Disorders: No Hx Family Cancer: Yes (Leukemia, Brain) Hx Family GI Disorders: No Hx Family Genitourinary Disorders: No Hx Family Endocrine Disorder: No Hx Family Musculoskeletal Disorders: No Hx Family Neuromuscular Disorders: No Hx Family Neurologic Disorders: No Hx Family HEENT Disorders: No Hx Family Autoimmune Disorders: No Hx Family Reproductive Disorders: No Hx Family Psychosocial Disorders: No Hx Family Medical Disorders: No Medications and Allergies Albuterol Sulfate 2.5 mg IH TID PRN 08/17/15 [History] Albuterol Sulfate [Ventolin Hfa] 2 puff IH Q4H PRN 08/17/15 [History] Fluticasone/Salmeterol [Advair 500-50 Diskus] 1 puff IH BID 08/17/15 [History] Losartan Potassium [Cozaar] 50 mg PO DAILY 08/17/15 [History] Roflumilast [Daliresp] 500 mcg PO DAILY 08/17/15 [History] Amlodipine Besylate 10 mg PO DAILY 01/31/16 [History] Oxygen 2 l NS HS 09/04/16 [History] Sulfamethoxazole/Trimeth DS [Bactrim DS] 1 each PO BID #10 tablet 11/12/16 [Rx] Ipratropium/Albuterol Sulfate [Combivent Respimat Inhal [place]] 1 puff IH BID [History] Melatonin 10 mg PO HS 11/15/16 [History] Allergies ciprofloxacin [From Cipro] Allergy (Verified 09/04/16 10:52) Swelling of Lip/Tongue/Throat All Systems Review: A 10-system review of systems was performed and is negative for pertinent findings except as documented above in the HPI. - Cardiovascular Cardiovascular: as per HPI Physical Examination Vital Signs, Last 4 Hours Temp Pulse Resp Pulse Ox 11/16/16 07:44 97.7 F 104 20 96 11/16/16 07:31 16 96 General: Conversant, No Apparent Distress HEENT: Atraumatic, Normocephaly Cardiac: Reg Rate and Rhythm, Normal S1 and S2 Lungs: Other (Diminished, wheezes throughout. ) Neuro: Alert and responsive Abdomen: Soft Skin: No rashes noted on visualized skin Musculoskeletal: No Chest Wall Tenderness Extremities: No Edema, Normal Pulses Results 11/16/16 03:27 11/16/16 03:27 Lab Results 11/16/16 11/16/16 11/16/16 03:27 03:27 03:27 WBC 3.8 L Hgb 12.1 L Hct 36.8 L Plt Count 225 APTT 28.2 Sodium 133 L Potassium 4.5 Chloride 104 Carbon Dioxide 23 BUN 11 Creatinine 0.97 Glucose 157 H Calcium 9.5 Troponin I 11/16/16 03:27 WBC Hgb Hct Plt Count APTT Sodium Potassium Chloride Carbon Dioxide BUN Creatinine Glucose Calcium Troponin I 0.01 - Imaging and Cardiology Stress Test: report reviewed Echo: pending, report reviewed Other Results: 12 hour tele: avg TB=336. - EKG Interpretation EKG results cardiology: personally reviewed Consult Discharge Plan - Plan Referrals: Marla Kellogg CNP [Primary Care Provider] - 11/26/16 1:15 pm (Please follow up as scheduled )
--- NOTE | 2016-11-16 13:34 | Electrocardiograph Report ---
[place] [id number] Test Date: 2016-11-15 Pat Name: Zelalem Jacques Department: 103 Room: 2A24 Gender: M Manufacturing Specialist: : [id number] Requested By: Amos Kpaadia Order Number: [id number] Reading MD: Saravanan Almaraz MD Measurements Intervals [place] Rate: 95 P: 86 AL: 166 QRS: 84 QRSD: 98 T: 85 QT: 333 QTc: 385 Interpretive Statements SINUS RHYTHM INDETERMINATE AXIS Poor R wave progression Electronically Signed On 11-16-2016 13:33:06 EDT by Saravanan Almaraz MD
--- NOTE | 2016-11-16 14:09 | Event Note ---
Date of Encounter: 11/16/16 Time of Encounter: 14:00 - Cardiology Event Note Echo: EF 70% with normal appearing pericardium, no significant effusion noted. Mild-moderate , unable to determine number of leaflets. Continue supportive care for COPD exacerbation and discontinuation of hydroxyzine. Recommend outpatient follow-up with [facility] in 2-[address] Au, Cardiology will sign-off, please call with questions.
[2016-11-16] MEDS: Azithromycin 500 MG in D5% in Water 250 ML IVPB SCH (17:19)
[2016-11-16] MEDS: Mirtazapine 15 MG TABLET PO SCH (20:08)
[2016-11-17] MEDS: 0.9 % Sodium Chloride 1,000 ML IVC SCH ×2 (00:27→10:44)
[2016-11-17] MEDS: Ipratropium/Albuterol Neb 3 ML IH SCH ×3 (04:01→11:02)
[2016-11-17] MEDS: *HR* Heparin 5,000 UNIT/ML VIAL SQ SCH (05:11)
[2016-11-17 06:00] LABS: Hematocrit 35.5 % (37.5-50.1); Hemoglobin 11.9 g/dL (12.9-16.9); Immature Granulocytes % 0.4 % (0-4); Lymphocytes # 0.2 K/mcL (0.6-4.6); Lymphocytes % 2.1 %; Mean Corpuscular HGB Conc 33.5 g/dL (31.6-35.5); Mean Corpuscular Hemoglobin 27.5 pg (28.0-33.3); Mean Platelet Volume 9.9 fL (9.4-12.4); Monocytes # 0.5 K/mcL (0.0-1.3); Monocytes % 4.6 %; Neutrophils # 9.5 K/mcL (1.6-8.9); Platelet Count 227 K/mcL (140-400); Red Blood Count 4.33 M/mcL (4.19-5.50); Red Cell Distribution Width 13.3 % (11.5-14.5); Segmented Neutrophils % 92.9 %
[2016-11-17 06:14] LABS: BUN/Creatinine Ratio 17 (6-26); Blood Urea Nitrogen 14 mg/dL (8-26); Calcium 9.2 mg/dL (8.6-10.8); Carbon Dioxide 24 mEq/L (19-29); Chloride 106 mEq/L (98-109); Glucose 143 mg/dL (70-99); Osmolality,Calculated 283 (280-300); Potassium 4.4 mEq/L (3.5-4.5); Sodium 135 mEq/L (136-145); eGFR For African Americans > 60 (> 60); eGFR For Non-African Americans > 60 (> 60)
[2016-11-17] MEDS: Budesonide/Formoterol 160/4.5 MDI IH SCH (07:29)
[2016-11-17] MEDS: amLODIPine 5 MG TABLET PO SCH (08:07)
[2016-11-17] MEDS: methylPREDNISolone 125 MG/2 ML VIAL IVP SCH (08:08)
[2016-11-17] MEDS: (Roflumilast [Daliresp] 500 MCG) PO SCH (08:09)
--- NOTE | 2016-11-17 12:11 | Discharge Summary ---
Date of Encounter: 11/17/16 Time of Encounter: 09:00 - Discharge Diagnosis (1) Acute exacerbation of chronic obstructive airways disease Priority: Primary Status: Acute (2) Prostate cancer Priority: Secondary Status: Acute (3) Hypertension Priority: Secondary Status: Chronic Qualifiers: Hypertension type: essential hypertension Qualified Code(s): I10 - Essential (primary) hypertension (4) Pericardial effusion Priority: Primary Status: Ruled-out (5) DVT prophylaxis Priority: Secondary Status: Acute - Discharge Medications Prescriptions: Ipratropium/Albuterol Neb [Duoneb] 3 ml IH [id number] #120 inhsol Azithromycin [Zithromax] 250 mg PO Q24H #7 tablet Mirtazapine [Remeron] 7.5 mg PO HS #14 tablet predniSONE [PredniSONE] See Taper PO DAILY #20 tablet Home Medications: Fluticasone/Salmeterol [Advair 500-50 Diskus] 1 puff IH BID 08/17/15 [History] Losartan Potassium [Cozaar] 50 mg PO DAILY 08/17/15 [History] Roflumilast [Daliresp] 500 mcg PO DAILY 08/17/15 [History] Amlodipine Besylate 10 mg PO DAILY 01/31/16 [History] Oxygen 2 l NS HS 09/04/16 [History] Ipratropium/Albuterol Sulfate [Combivent Respimat Inhal [place]] 1 puff IH BID [History] Melatonin 10 mg PO HS 11/15/16 [History] Azithromycin [Zithromax] 250 mg PO Q24H #7 tablet 11/17/16 [Rx] Ipratropium/Albuterol Neb [Duoneb] 3 ml IH [id number] #120 inhsol 11/17/16 [Rx] Mirtazapine [Remeron] 7.5 mg PO HS #14 tablet 11/17/16 [Rx] predniSONE [PredniSONE] See Taper PO DAILY #20 tablet 11/17/16 [Rx] Allergies/Adverse Reactions: Allergies ciprofloxacin [From Cipro] Allergy (Verified 09/04/16 10:52) Swelling of Lip/Tongue/Throat Procedures/tests Complete & Pending: Procedures Performed prior 72 hours Category Date Time Status EV echocardiogram Stat Y 11/16/16 17:41 Completed - Notes to Outpatient Provider 1. Continue prednisone taper down dose: 40 mg by mouth daily for 3 days, then 20 mg by mouth daily for 3 days, then 10 mg by mouth daily for 3 days Date of admission: 11/15/16 16:05 Primary care physician: Marla Kellogg CNP Discharging clinician: Mari Reardon Anticipated date of discharge: 11/17/16 - Patient Status Disposition: Home, Self-Care Condition: Fair Overall status at discharge: patient is back to baseline - Discharge Instructions Follow Up With: Marla Kellogg CNP [Primary Care Provider] - 11/26/16 1:15 pm (Please follow up as scheduled ) - Diet and Activity Activity: increase activity as tolerated Diet: low fat, low cholesterol, low salt diet Interval History: Mr. Jacques is a 71 year old male who presents from the ED with chief complaint of shortness of breath and shakiness for the past few days. Patient reports shortness of breath has been ongoing accompanied by dizziness for the past 3 weeks became progressively worse within the past 2-3 days. SOB has been accompanied by a feeling of total body shakiness. Patient felt his dizziness, shakiness, and SOB was due to new prescription of hydroxyzine 70 discontinued as of yesterday. Patient also reports a new history of prostate cancer and received radiation treatments daily for the past [address] Garrido at [facility]. Patient reports he was also diagnosed with the UTI by Dr. Garrido which ago and placed on by mouth antibiotics. Mr. Jacques also reports he has not slept more than 2 hours in the past week due to anxiety and SOB. Patient denies chest pain or pressure, abdominal pain, recent illness, syncope, presyncope, fever, chills, productive cough, nausea, vomiting, diarrhea, constipation, unusual bleeding or weight loss, or generalized weakness. Patient has a history of prostate cancer, COPD, hypertension but denies any cardiac history or issues. CT of the chest dated 11/15/16 shows new trace pericardial effusion with no evidence of cardiac tamponade. Patient is at moderate risk due to shortness of breath, COPD, and pericardial effusion and will be placed as observation status. Mr. Jacques has orders for echocardiogram, CK/MB, iron panel due to microcytic/hypochromic anemia, continuous cardiac telemetry, supplemental O2 with saturation of SPO2 less than 92%, continuous SPO2 monitoring, and IV azithromycin 500 mg daily. Urine cultures ordered. Patient to be monitored closely. Hospital course: Mr. Jacques is a 71 year old male admitted for COPD exacerbation. He was also found small amount of pericardial effusion by CAT scan. Patient was treated with antibiotic, steroid, and bronchodilator. Echocardiogram ordered and cardiac consult has been called. Echo shows no pericardial effusion, cardiology saw patient, no further testing needed, patient need follow-up with cardiology in 2-3 weeks. After treatment, patient's symptoms has improved significantly, now his shortness of breath is about his baseline. Will discharge patient home with by mouth medications (antibiotics and tapered down steroid), patient will follow-up with with PCP as outpatient. I saw and examined the patient today. He is awake alert, oriented 3. Mild shortness of breath which he states is at his baseline. Denies chest pain. Patient is stable to discharge home. Patient was placed on Remeron 7.5 mg by mouth at bedtime for insomnia in Hospital. Patient said it is very effective for his insomnia, will continue medication and further evaluated by PCP - Time Spent with Patient Total time spent providing and/or coordinating discharge services: 40 min Greater than 30 minutes - Constitutional Vitals: Temp Pulse Resp BP Pulse Ox 98 F 97 18 166/69 98 11/17/16 08:00 11/17/16 08:00 11/17/16 11:02 11/17/16 08:00 11/17/16 11:02 General appearance: Present: cooperative, mild distress (Respiratory with accessory muscle use), A&O X 3, pleasant, answers questions appropriately - Head Head exam: Present: atraumatic, normocephalic - Eye Eye exam: Present: PERRL, conjuntiva pink, sclera anicteric Pupils: Present: PERRL - Neck Neck exam general surgery: Present: supple, trachea midline. Absent: lymphadenopathy - Respiratory Respiratory exam: Present: CTAB. Absent: accessory muscle use, rales, rhonchi, wheezes - Cardiovascular Cardiovascular exam: Present: RRR, +S1, +S2. Absent: diastolic murmur, gallop, rubs, systolic murmur - GI/Abdominal GI/Abdominal exam: Present: normal bowel sounds, soft, no peritoneal signs. Absent: distended, tenderness - Extremities Exam Extremities exam: Present: warm, radial pulses palpable and symetrical. Absent : calf tenderness, cyanotic, pedal edema - Neurological Exam Neurological exam: Present: CN II-XII intact, oriented X3, no focal deficits. Absent: pronater drift, facial droop, speech deficit - Skin Skin exam: Present: dry, intact
[2016-11-17 12:18] VITALS: BP 169/58
[2016-11-18] MEDS ORDERED: predniSONE 20 MG TABLET PO SCH (09:00)
[2016-11-18 16:23] LABS: CKMB Percent NOT DONE (0.0-5.0)
== END 2016-11-17 14:05 | disposition home or self-care (01) ==
LOC: 2ANU 12:27 → EMEROO 12:27 → 2ANU 17:00
PROVIDERS: ADMIT Internal Medicine; ATTEND Internal Medicine